=== PATIENT | male | born 1980 | race Two or more races ===

== ENCOUNTER 2017-06-23 16:43 | Emergency (ER) | payer MEDICAID ==
[2017-06-23 17:00] VITALS: BP 169/93; PULSE 95; RESP 16; TEMP 98.2
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
== END 2017-06-23 18:35 | disposition home or self-care (01) ==
LOC: EC 16:43
DX: J02.9 Acute pharyngitis, unspecified (principal); B37.0 Candidal stomatitis; F17.200 Nicotine dependence, unspecified, uncomplicated; Z88.1 Allergy status to other antibiotic agents
CPT/HCPCS: 99283